=== PATIENT | male | born 1960 | race African-American/Black ===

== ENCOUNTER 2017-11-13 21:44 | Emergency (ER) | payer MEDICAID ==
[2017-11-13 21:49] VITALS: TEMP 97.9
--- NOTE | 2017-11-13 22:20 | EDPHY ---
General Narrative: CHIEF COMPLAINT: Fall, back pain HISTORY OF PRESENT ILLNESS: Patient complains of severe lower back pain. This is the lumbar region. It radiates into the right leg with reported numbness and tingling of the right foot. No saddle anesthesia. No incontinence of bowel or bladder. No head or neck injury from the fall. No loss of conscious. No vomiting. No chest pain or shortness of breath. No abdominal pain. He has a history of lumbar degenerative disc with right-sided radiculopathy. He has an MRI from August the document this. This stems from a work related injury. Went to his work comp clinic today and they prescribed further Ultram and instructed him to return to work. He says that he fell after this and was unable to go back to work due to the pain. No other associated complaints or modifying factors ESTABLISHED ORTHOPEDIST: None REVIEW OF SYSTEMS: Ten systems reviewed and are negative unless otherwise noted in the HPI PAST MEDICAL HISTORY: Chronic back pain, lumbar radiculopathy PAST SURGICAL HISTORY: No back surgeries SOCIAL HISTORY: Daily smoker. Occasional alcohol use. Did ingest alcohol today FAMILY HISTORY: Noncontributory EXAMINATION General Appearance: Alert, no distress HEENT: Head is normocephalic and atraumatic. Pupils are equal, round and reactive. EOMs intact. Neck: Supple nontender. No crepitus, step-off or deformity Cardiovascular: Pulses normal throughout. Brisk cap refill. No murmur. Symmetric DP and PT pulses 2+. Neurological: A&O, GCS 15. Cranial nerves 2-12 grossly intact. sensory symmetric, strength symmetric. Sharp sensation to the right lower extremity intact. Light sensation to right lower extremity intact. Symmetric temperature discretion. Patellar reflexes symmetric Skin: Warm and dry, no rash. No petechiae or purpura. No laceration or abrasion. Extremities: Symmetric range of motion of the lower extremities. Psychiatric: Mood and affect normal DIFFERENTIAL DIAGNOSES: Including but not limited to lumbar fracture, lumbar radiculopathy, strain, sprain MDM: 10:02 p.m. Acute low back pain after a reported fall in a patient with right-sided radiculopathy. He has no neuro deficits although he does endorse numbness of the right leg. He has symmetric pain, temperature and light touch sensation to the legs. No footdrop. No obvious trauma to the back by inspection. I have ordered an x-ray to rule out fracture. I do not feel he warrants any further imaging at this time. He has a bottle of metaxalone in his back as well as description for tramadol that he did not feel from an earlier visit today. He has no outward signs of trauma or else on his person. 11:15 p.m. X-ray as read by me reveals chronic appearance of lumbar spine. I have discussed with the radiologist Dr. Garcia. She has reviewed the x-ray degrees. There are degenerative changes with no acute fracture identified. Patient is neuro intact with no evidence of acute cord compression despite his complaint of numbness. He actually has full sensory symmetric in lower extremities. He has excellent strength. Discharged home with instructions to continue the previous medications provided by his worker's compensation Clinic. ED precautions discussed. He is discharged home stable condition. SUPERVISION: Patient was independently examined, but I discussed the case with my secondary supervising physician Dr. Whyte ED Precautions: Worsening pain. Erythema, edema, cyanosis, pallor, paresthesia or anesthesia. - History Smoking Status: Current every day smoker - Objective Vital Signs: Initial Vital Signs Temperature (C) 97.9 F 11/13/17 21:46 Heart Rate 98 11/13/17 21:46 Respiratory Rate 18 11/13/17 21:46 Blood Pressure 154/103 H 11/13/17 21:46 O2 Sat (%) 95 11/13/17 21:46 O2 Delivery Mode Room Air Allergies/Adverse Reactions: apple Allergy (Verified 11/13/17 21:50) shellfish derived Allergy (Verified 11/13/17 21:50) Home Medications: Medication Instructions Recorded Carvedilol 10/19/16 Lasix 10/19/16 Lisinopril 10/19/16 HCTZ (*) 11/13/17 traMADol 11/13/17 Departure - Departure Disposition: Home, Routine, Self-Care Clinical Impression: Lumbar radiculopathy, chronic Acute low back pain Qualifiers: Back pain laterality: right Sciatica presence: with sciatica Sciatica laterality: sciatica of right side Qualified Code(s): M54.41 - Lumbago with sciatica, right side Condition: Good Instructions: Low Back Strain (ED), Lumbar Radiculopathy (ED) Additional Instructions: 1. Continue your previous medications as prescribed by your worker's compensation Clinic 2. Follow up with the worker's compensation Clinic for further care 3. ED precautions as discussed Referrals: Kameron Wells MD [Medical Doctor] - As per Instructions
[2017-11-13 23:37] VITALS: BP 143/80; PULSE 97; RESP 16; O2SAT 92
== END 2017-11-13 23:37 | disposition home or self-care (01) ==
LOC: EDUNIT#
DX: S39.92XA Unspecified injury of lower back, initial encounter (principal); M54.16 Radiculopathy, lumbar region; F17.200 Nicotine dependence, unspecified, uncomplicated; W18.39XA Other fall on same level, initial encounter

== ENCOUNTER 2017-12-21 01:28 | Emergency (ER) | payer MEDICAID ==
[2017-12-21 01:34] VITALS: BP 155/114; PULSE 85; RESP 18; TEMP 97.7; O2SAT 97
[2017-12-21] MEDS ORDERED: IBUPROFEN 600 MG TAB PO ONE (01:37)
--- NOTE | 2017-12-21 01:39 | EDPHY ---
H & P Time Seen by Provider: 12/21/17 01:37 HPI/ROS: Chief Complaint: Back pain HPI: 57-year-old male with a history of chronic back pain was drinking alcohol tonight. Patient states she was walking class to Street when he tripped on a curb and fell. Back pain is worse. No new numbness or weakness. He is ambulating for EMS. He states that he was just seen a few days ago and was given a prescription for Erskine which she has not gotten filled yet. He is caring with him a prescription that was written him at [facility] on the . He is also telling me has an appointment with a back specialist in [place] on . He is in [place] because he fell asleep on the bus after drinking tonight. He did not hit his head. No loss of consciousness. He has not have any difficulty urinating. Patient states this is eggs exacerbation of his chronic back pain. No fevers or chills. Denies IV drug use. No new numbness or weakness. Patient was able to transfer himself from the EMS stretcher to the hospital bed without any difficulty. ROS: 10 point Review of Systems is negative except as noted in the HPI. PMH: Chronic back pain, sciatica Social History: No smoking, daily alcohol, no recreational drug use Family History: non-contributory Physical Exam: Gen: Awake, Alert, No Distress HEENT: Nose: no rhinorrhea Eyes: PERRLA, EOMI Mouth: Moist mucosa Neck: Supple, no JVD Chest: nontender, lungs clear to auscultation Heart: S1, S2 normal, no murmur Abd: Soft, non-tender, no guarding Back: no CVA tenderness, no midline tenderness Ext: no edema, non-tender Skin: no rash Neuro: CN II-XII intact, Sensation grossly intact, Strength 5/5 in bilateral upper and lower extremities, he has 2+ deep tendon reflexes, toes are downgoing , sensations intact - Medical/Surgical History Hx Asthma: No Hx Chronic Respiratory Disease: No Hx Diabetes: No Hx Cardiac Disease: Yes Hx Renal Disease: No Hx Cirrhosis: No Hx Alcoholism: Yes Hx HIV/AIDS: No Hx Splenectomy or Spleen Trauma: No Other PMH: HTN, bleeding gastric ulcer. L4/L5 buldging disc- chronic pain - Social History Smoking Status: Current every day smoker Constitutional: Initial Vital Signs Temperature (C) 36.5 C 12/21/17 01:33 Heart Rate 85 12/21/17 01:33 Respiratory Rate 18 12/21/17 01:33 Blood Pressure 155/114 H 12/21/17 01:33 O2 Sat (%) 97 12/21/17 01:33 O2 Delivery Mode Room Air Allergies/Adverse Reactions: apple Allergy (Verified 11/13/17 21:50) shellfish derived Allergy (Verified 11/13/17 21:50) Home Medications: Medication Instructions Recorded Carvedilol 10/19/16 Lasix 10/19/16 Lisinopril 10/19/16 HCTZ (*) 11/13/17 traMADol 11/13/17 Medical Decision Making ED Course/Re-evaluation: 57-year-old male presents intoxicated complaining of exacerbation of his back pain after a fall. He is neurologically intact. He has no red flags for cauda equina syndrome or epidural abscess. He has been given ibuprofen and a Lidoderm patch here. He has been given a prescription for Erskine by another physician in [place]. He has an appointment with a back specialist in 3 days in [place]. He is ambulating in the emergency department. I have reviewed the patient's records in [facility], he has been seen in the last month at [facility], , [facility], and the [facility] [place] all complaining of falls back pain and alcohol intoxication. Will discharge with follow up with his physician as scheduled. He has been encouraged to discontinue drinking alcohol. - Data Points Medications Given: Lidocaine (Lidoderm 5%) 1 ea TD DAILY ROJELIO Stop: 06/19/18 08:59 Last Admin: 12/21/17 01:51 Dose: 1 ea Discontinued Medications Ibuprofen (Motrin) 600 mg PO EDNOW ONE Stop: 12/21/17 01:38 Last Admin: 12/21/17 01:48 Dose: 600 mg Departure - Departure Disposition: Home, Routine, Self-Care Clinical Impression: Back pain Condition: Good Instructions: Back Pain (ED), Lower Back Exercises (ED) Additional Instructions: Take ibuprofen, 600 mg, 3 times a day. You may also take acetaminophen, 1000 mg every 6 hours. Make sure to remain active. Did do not lay in bed or sit in a chair for long periods. It is important to remain active and keep your back moving in order to improve. Please see the attached back exercise instructions. Follow up with your back pain specialist as scheduled on . Referrals: Patient,NotPresent [Unknown] - As per Instructions
[2017-12-21] MEDS ORDERED: LIDOCAINE 5% 1 EA PATCH TD ONE (01:46)
[2017-12-21] MEDS ORDERED: LIDOCAINE 5% 1 EA PATCH TD SCH (09:00)
== END 2017-12-21 02:25 | disposition home or self-care (01) ==
LOC: EDUNIT#
DX: M54.9 Dorsalgia, unspecified (principal); I10 Essential (primary) hypertension; F17.200 Nicotine dependence, unspecified, uncomplicated

== ENCOUNTER 2018-10-01 20:29 | Emergency (ER) | payer MEDICAID ==
[2018-10-01] MEDS ORDERED: LIDOCAINE 4%/MENTHOL 1% PATCH TD ONE (20:52)
[2018-10-01] MEDS ORDERED: ACETAMINOPHEN 325 MG TAB PO ONE (20:52)
--- NOTE | 2018-10-01 20:52 | EDPHY ---
H & P Time Seen by Provider: 10/01/18 20:35 HPI/ROS: CHIEF COMPLAINT: Back pain and shoulder pain HISTORY OF PRESENT ILLNESS: Patient has chronic back pain for many years. He also has chronic right shoulder pain after surgery 8 years ago. Patient was seen yesterday at a hospital which may have been [facility] and was started on gabapentin. He says he fell today for yesterday and slipped and lost his balance and re- injured his back. Does drink alcohol every day and is drinking today. Does not have associated weakness or numbness in extremities or incontinence. No abdominal pain or vomiting. REVIEW OF SYSTEMS: Eye: no change in vision ENT: no sore throat Cardiac: no chest pain or syncope Pulmonary: no cough or SOB Abdomen: no vomiting, diarrhea, abdominal pain Musculoskeletal: HPI Skin: no rash Neuro: no headache Constitutional: no fever : no urinary symptoms A comprehensive 10 point review of systems is otherwise negative aside from elements mentioned in the history of present illness. PAST MEDICAL HISTORY: Shoulder surgery, chronic back pain. Hypertension, gastric ulcer. Lumbar disc problems. Social history: Recent alcohol. General Appearance: Alert and conversant, cooperative. Slightly slow to respond. Eyes: No scleral icterus. ENT, Mouth: Normal mucous membranes. Respiratory: Normal respiratory effort, breath sounds equal, lungs are clear to auscultation. Cardiovascular: Regular rate and rhythm. Gastrointestinal: Abdomen is soft and non tender. Neurological: Alert, face symmetric, normal motor and sensory in extremities. Patellar reflexes 1+ symmetric, toes downgoing, no clonus. Skin: Warm and dry, no rashes. Musculoskeletal: No midline spinal tenderness. He describes the pain is right lower lumbar. Pelvis stable to compression. Normal right shoulder range of motion with no focal tenderness. Psychiatric: Not agitated. Emergency Department course/MDM: X-ray of the lumbar spine recent trauma, Tylenol and lidocaine patch. No narcotics. Patient admits to alcohol and appears clinically mildly intoxicated. I suspect his chronic pain is worsened because he is not taking the gabapentin he was prescribed. It also may be related to recent fall. And does not help that he continues to drink alcohol heavily. Results discussed with the patient at 10:15 p.m.. Smoking Status: Current every day smoker Constitutional: Initial Vital Signs Temperature (C) 36.7 C 10/01/18 20:47 Heart Rate 82 10/01/18 20:47 Respiratory Rate 20 10/01/18 20:47 Blood Pressure 133/90 H 10/01/18 20:47 O2 Sat (%) 98 10/01/18 20:47 O2 Delivery Mode Room Air Allergies/Adverse Reactions: apple Allergy (Verified 07/21/18 22:18) ibuprofen [From Motrin] Allergy (Verified 07/21/18 22:18) shellfish derived Allergy (Verified 07/21/18 22:18) Home Medications: Medication Instructions Recorded traMADol 11/13/17 Gabapentin 06/06/18 Medical Decision Making - Diagnostics Imaging Results: Imaging Impressions Lumbar Spine X-Ray 10/01/18 20:52 Impression: Degenerative disk and degenerative joint disease of the lumbar spine L3-L4 through L5-S1, with a stable appearance. Imaging: I viewed and interpreted images myself Differential Diagnosis: Differential considered in including but not limited to disc herniation, chronic back pain, musculoskeletal, spinal cord problem, vascular problem, vertebral fracture. - Data Points Medications Given: Discontinued Medications Acetaminophen (Tylenol) 650 mg PO EDNOW ONE Stop: 10/01/18 20:53 Last Admin: 10/01/18 21:28 Dose: Not Given Miscellaneous Medication (Icy Hot Lidocaine/Menthol 4%/1% Patch) 1 patch TD EDNOW ONE Stop: 10/01/18 20:53 Last Admin: 10/01/18 21:28 Dose: 1 patch Departure - Departure Disposition: Home, Routine, Self-Care Clinical Impression: Back pain Qualifiers: Back pain location: low back pain Chronicity: unspecified Back pain laterality : bilateral Sciatica presence: without sciatica Qualified Code(s): M54.5 - Low back pain Alcohol intoxication Qualifiers: Complication of substance-induced condition: uncomplicated Qualified Code(s): F10.920 - Alcohol use, unspecified with intoxication, uncomplicated Condition: Good Instructions: Alcohol Intoxication (ED), Chronic Back Pain (DC) Referrals: [facility],. [Clinic] - As per Instructions
[2018-10-01] MEDS ORDERED: PATCH REMOVAL 1 EA PATCH TD SCH (21:00)
[2018-10-01 23:31] VITALS: BP 131/93
== END 2018-10-01 23:31 | disposition home or self-care (01) ==
LOC: EDUNIT#
DX: M54.5 Low back pain (principal); M25.511 Pain in right shoulder; G89.29 Other chronic pain; W19.XXXA Unspecified fall, initial encounter; F10.920 Alcohol use, unspecified with intoxication, uncomplicated; I10 Essential (primary) hypertension

== ENCOUNTER 2019-04-08 21:33 | Emergency (ER) | payer MEDICAID ==
--- NOTE | 2019-04-08 21:55 | EDPHY ---
H & P Stated Complaint: blurred vision and marie sionce 11/2018 Time Seen by Provider: 04/08/19 21:55 HPI/ROS: HPI CHIEF COMPLAINT: Alcohol intoxication HISTORY OF PRESENT ILLNESS: Patient is a 58-year-old male, arrives to the emergency room by ambulance, he is highly intoxicated with alcohol. His history review of systems is limited due to acute alcohol intoxication. He arrives slurring his speech. He does complain of a headache. Is reported that in November he had a subdural hemorrhage was seen at [facility]. He had this apparently evacuated, he has a history of alcoholism daily alcohol use , chronic back pain. He also complains of blurry vision which he tells me has been since his subdural back in November. Past Medical History: Alcoholism daily alcohol use. Past Surgical History: Subdural hemorrhage with evacuation at [facility] in November Social History: Homeless, daily alcohol use. Family History: Noncontributory ROS REVIEW OF SYSTEMS: Limited due to alcohol intoxication Exam Constitutional intoxicated, smells of alcohol triage nursing summary reviewed, vital signs reviewed, awake/alert. Eyes normal conjunctivae and sclera, EOMI, PERRLA. HENT head/neck atraumatic on exam. normal inspection, atraumatic, moist mucus membranes, no epistaxis, neck supple/ no meningismus, no raccoon eyes. Respiratory clear to auscultation bilaterally, normal breath sounds, no respiratory distress, no wheezing. Cardiovascular rate normal, regular rhythm, no murmur, no edema, distal pulses normal. Gastrointestinal soft, non-tender, no rebound, no guarding, normal bowel sounds, no distension, no pulsatile mass. Genitourinary no CVA tenderness. Musculoskeletal no midline vertebral tenderness, full range of motion, no calf swelling, no tenderness of extremities, no meningismus, good pulses, neurovascularly intact. Skin pink, warm, & dry, no rash, skin atraumatic. Neurologic sleepy, slurring speech, intoxicated. Psychiatric normal mood/affect. Heme/Lymph/Immune no lymphadenopathy. Differential Diagnosis: Includes but is not limited to in a particular order acute alcohol intoxication, dehydration, electrolyte disturbance, recurrent intracranial bleed Medical Decision Making: Plan for this patient IV establishment IV fluid bolus , basic labs, alcohol level, gentle IV fluids, CT scan head without contrast. Re-evaluation: CT scan head without contrast negative for acute bleed called to me by Dr. Gutierrez. Serum alcohol level 412. - Personal History Current Tetanus Diphtheria and Acellular Pertussis (TDAP): Yes Tetanus Vaccine Date: 2017 - Medical/Surgical History Hx Asthma: No Hx Chronic Respiratory Disease: No Hx Diabetes: No Hx Cardiac Disease: Yes Hx Renal Disease: No Hx Cirrhosis: No Hx Alcoholism: Yes Hx HIV/AIDS: No Hx Splenectomy or Spleen Trauma: No Other PMH: HTN, bleeding gastric ulcer. L4/L5 buldging disc- chronic pain , ptsd, anxiety, depression, subdural hematome w/ surgery 11/2018 - Social History Smoking Status: Current every day smoker Constitutional: Initial Vital Signs Temperature (C) 36.6 C 04/08/19 21:37 Heart Rate 69 04/08/19 21:37 Respiratory Rate 16 04/08/19 21:37 Blood Pressure 152/109 H 04/08/19 21:37 O2 Sat (%) 98 04/08/19 21:37 O2 Delivery Mode Nasal Cannula O2 (L/minute) 2 Allergies/Adverse Reactions: apple Allergy (Verified 04/08/19 21:36) ibuprofen [From Motrin] Allergy (Verified 04/08/19 21:36) shellfish derived Allergy (Verified 04/08/19 21:36) Home Medications: Medication Instructions Recorded NK [No Known Home Meds] 04/08/19 Medical Decision Making - Diagnostics Imaging Results: Imaging Impressions Head CT 04/08/19 22:06 Impression: 1. Left frontal parietal chronic dural thickening in the region of previous forest holes. 2. No acute hemorrhage, or acute epidural/subdural hematoma. 3. Severe cerebral and cerebellar atrophy. 4. No hydrocephalus, midline shift or herniation. 5. No sinusitis. Findings and recommendations discussed with Emergency Department physician, Braulio Santoro MD at 22:45 hour, 04/08/2019. Final report concurs with initial preliminary interpretation. - Data Points Laboratory Results: Laboratory Results 04/08/19 22:15 04/08/19 22:15 04/08/19 04/08/19 04/08/19 22:15 22:15 22:15 WBC 4.05 10^3/uL 10^3/uL (3.80-9.50) RBC 3.56 10^6/uL L 10^6/uL (4.40-6.38) Hgb 11.5 g/dL L g/dL (13.7-17.5) Hct 34.1 % L % (40.0-51.0) MCV 95.8 fL fL (81.5-99.8) MCH 32.3 pg pg (27.9-34.1) MCHC 33.7 g/dL g/dL (32.4-36.7) RDW 13.0 % % (11.5-15.2) Plt Count 195 10^3/uL 10^3/uL (150-400) MPV 10.4 fL fL (8.7-11.7) Neut % (Auto) 42.3 % % (39.3-74.2) Lymph % (Auto) 45.7 % H % (15.0-45.0) Edgar % (Auto) 9.4 % % (4.5-13.0) Eos % (Auto) 0.7 % % (0.6-7.6) Baso % (Auto) 1.7 % % (0.3-1.7) Nucleat RBC Rel Count 0.0 % % (0.0-0.2) Absolute Neuts (auto) 1.71 10^3/uL 10^3/uL (1.70-6.50) Absolute Lymphs (auto) 1.85 10^3/uL 10^3/uL (1.00-3.00) Absolute Monos (auto) 0.38 10^3/uL 10^3/uL (0.30-0.80) Absolute Eos (auto) 0.03 10^3/uL 10^3/uL (0.03-0.40) Absolute Basos (auto) 0.07 10^3/uL 10^3/uL (0.02-0.10) Absolute Nucleated RBC 0.00 10^3/uL 10^3/uL (0-0.01) Immature Gran % 0.2 % % (0.0-1.1) Immature Gran # 0.01 10^3/uL 10^3/uL (0.00-0.10) PT 13.7 SEC SEC (12.0-15.0) INR 1.09 (0.83-1.16) APTT 38.0 SEC SEC (23.0-38.0) Sodium 144 mEq/L mEq/L (135-145) Potassium 3.8 mEq/L mEq/L (3.5-5.2) Chloride 109 mEq/L mEq/L (97-110) Carbon Dioxide 23 mEq/l mEq/l (22-31) Anion Gap 12 mEq/L mEq/L (6-14) BUN 9 mg/dL mg/dL (7-23) Creatinine 0.8 mg/dL mg/dL (0.7-1.3) Estimated GFR > 60 Glucose 78 mg/dL mg/dL (70-100) Calcium 8.4 mg/dL L mg/dL (8.5-10.4) Ethyl Alcohol 412 mg/dL H* mg/dL (0-10) Medications Given: Discontinued Medications Sodium Chloride (Ns) 1,000 mls @ 0 mls/hr IV EDNOW ONE; Wide Open PRN Reason: Protocol Stop: 04/08/19 22:06 Last Admin: 04/08/19 22:18 Dose: 1,000 mls Departure - Departure Disposition: Home, Routine, Self-Care Clinical Impression: Alcohol intoxication Condition: Good Instructions: Alcohol Intoxication (ED), Abuse of Alcohol (ED) Referrals: Patient,NotPresent [Primary Care Provider] - As per Instructions
[2019-04-08] MEDS ORDERED: NS 1,000 ML IV ONE (22:05)
[2019-04-08 22:36] LABS: PLATELET COUNT 195 10^3/uL (150-400)
[2019-04-08 22:43] LABS: INR 1.09 (0.83-1.16); PROTIME(PATIENT) 13.7 SEC (12.0-15.0)
[2019-04-09 05:40] VITALS: BP 125/83
== END 2019-04-09 05:39 | disposition home or self-care (01) ==
LOC: EDUNIT#
DX: F10.129 Alcohol abuse with intoxication, unspecified (principal); I10 Essential (primary) hypertension; E86.9 Volume depletion, unspecified; Y90.8 Blood alcohol level of 240 mg/100 ml or more; Z59.0 Homelessness
CPT/HCPCS: G0480